=== PATIENT | male | born 1995 | race Caucasian/White ===

== ENCOUNTER 2016-09-12 22:16 | Emergency (ER) | payer OTHER ==
[~2016-09-12] VITALS: Ht 165.1 cm; Wt 86.2 kg
[~2016-09-12 22:16] MED LIST: HYDR-548 PO
--- NOTE | 2016-09-12 22:45 | NUR ---
PT CAME IN WITH C/O LOW BACK PAIN.PT STATES FELL THIS AM FLAT ON BACK.PT STATES FLOOR SLIPPERY AND HE WAS RUNNING AND FELL.ALSO PAIN IN COCCYX AREA. PT IS ALERT, ORIENTED X 4, NO RESP DISTRESS NOTED OR REPORTED UPON ASSESSMENT. MD AT BEDSIDE...
--- NOTE | 2016-09-12 23:13 | NUR ---
Radiology dept contacted to advised of ordered lumbar spine CT.... tech acknowledged...
[2016-09-12] MEDS ORDERED: IBUPROFEN 800 MG TABLET PO ONE (23:15)
--- NOTE | 2016-09-12 23:17 | NUR ---
BUTTON CUTTER TO TAKE PT FOR SCANS, PER PTS REQUEST, PT WILL BE WALKING TO RADIOLOGY FOR SCANS... NO DISTRESS NOTED OR REPORTED UPON TRANSFER ASSESSMENT...
[2016-09-12] MEDS ORDERED: IBUPROFEN 800 MG TABLET ONE (23:20)
--- NOTE | 2016-09-12 23:58 | NUR ---
rad results in and pt reevaluated by dr montero, talked to pt about the results.
--- NOTE | 2016-09-13 | NUR ---
aci and presc given to pt, presc explained..and understood, discharged ambulatory in stable condition.
[2016-09-13 00:02] VITALS: BP 110/66
== END 2016-09-13 00:07 | disposition home or self-care (01) ==
LOC: ER 22:16
DX: M54.5 Low back pain (principal); W01.0XXA Fall on same level from slipping, tripping and stumbling without subsequent striking against object, initial encounter; Y93.89 Activity, other specified; Y92.9 Unspecified place or not applicable; Y99.9 Unspecified external cause status
CPT/HCPCS: 72131; 99284; A4663

== ENCOUNTER 2016-11-25 15:18 | Emergency (ER) | payer OTHER ==
[~2016-11-25] VITALS: Ht 165.1 cm; Wt 88.9 kg
[2016-11-25] MEDS: IV NORMAL SALINE 1000 ML BAG IV ONE (15:45)
--- NOTE | 2016-11-25 15:46 | NUR ---
PT IS IN ROOM #2A. DR BAEZA EVALUATED THE PT.
[2016-11-25] MEDS: KETOROLAC TROMETHAMINE 15 MG INJ IV ONE (15:51)
[2016-11-25] MEDS: FAMOTIDINE. 20 MG/2 ML VIAL IV ONE (15:52)
[2016-11-25] MEDS: ONDANSETRON 4 MG/2 ML VIAL IV ONE (15:52)
[2016-11-25 15:53] LABS: BASOPHILS # (AUTO) 0.5 K/uL (0.0-8.0); BASOPHILS % (AUTO) 2.4 % (0.0-2.0); HEMATOCRIT 43.8 % (40-50); HEMOGLOBIN 15.4 G/DL (14.0-18.0); LYMPHOCYTES # (AUTO) 0.7 K/UL (0.8-4.8); LYMPHOCYTES % (AUTO) 3.7 % (20.5-51.5); MEAN CORPUSCULAR HEMOGLOBIN 30.6 UUG (27.0-31.0); MEAN CORPUSCULAR HGB CONC 35 g/dL (32.0-37.0); MEAN CORPUSCULAR VOLUME 86.7 FL (82.0-92.0); MONOCYTES # (AUTO) 0.8 K/UL (0.1-1.30); NEUTROPHILS # (AUTO) 17.3 K/UL (1.8-8.9); NEUTROPHILS % (AUTO) 89.9 % (38.5-71.5); PLATELET COUNT (AUTO) 240 K/UL (150-450); RED BLOOD CELL COUNT(AUTO) 5.05 MIL/UL (4.7-6.1); WHITE BLOOD COUNT (AUTO) 19.3 K/UL (4.0-11.2)
[2016-11-25 15:56] LABS: CREATININE 1.1 mg/dL (0.6-1.3); POTASSIUM 3.8 mmol/L (3.5-5.1)
[2016-11-25] MEDS ORDERED: KETOROLAC TROMETHAMINE 30 MG INJ ONE (15:59)
[2016-11-25] MEDS ORDERED: ONDANSETRON 4 MG/2 ML VIAL ONE (15:59)
[2016-11-25] MEDS ORDERED: FAMOTIDINE. 20 MG/2 ML VIAL IV ONE (16:00)
[2016-11-25 16:01] LABS: BILIRUBIN,DIRECT 0.1 mg/dL (0.0-0.2); BILIRUBIN,TOTAL 0.7 mg/dL (0.2-1.0); TOTAL PROTEIN, SERUM 8.5 g/dL (6.4-8.2)
[2016-11-25 16:17] LABS: BAND % (MANUAL) 14 % (0-10); NEUTROPHILS % (MANUAL) 77 % (42-75)
[2016-11-25 16:18] LABS: LYMPHOCYTES % (MANUAL) 4 % (20-40); MONOCYTES % (MANUAL) 5 % (2-10)
--- NOTE | 2016-11-25 16:47 | NUR ---
PT WAS D/C TO HOME. D/C INSTRUCTIONS GIVEN TO THE PT.
[2016-11-25 16:49] VITALS: BP 136/77
== END 2016-11-25 16:50 | disposition home or self-care (01) ==
LOC: ER 15:23
DX: B34.9 Viral infection, unspecified (principal); M54.5 Low back pain
CPT/HCPCS: 36415; 83690; 85025; A4663; J1885; J2405; J3490; J7030

== ENCOUNTER 2017-03-02 03:59 | Emergency (ER) ==
[~2017-03-02] VITALS: Ht 165.1 cm; Wt 87.1 kg
--- NOTE | 2017-03-02 04:10 | NUR ---
Patient walked into ER c/o right big toe nail injury. Patient states was lifting wt. at school gym 5hrs ago when patient accidently dropped 60lbs on his right toe while doing curls. Patient ripped off toe nail prior to arrival due to swelling of nail bed area and pain
--- NOTE | 2017-03-02 04:25 | NUR ---
Placed dressing on big toe injury as ordered
[2017-03-02 04:34] VITALS: BP 140/90
== END 2017-03-02 04:34 | disposition home or self-care (01) ==
LOC: ER 04:02
DX: S97.111A Crushing injury of right great toe, initial encounter (principal); S91.201A Unspecified open wound of right great toe with damage to nail, initial encounter; W20.8XXA Other cause of strike by thrown, projected or falling object, initial encounter; Y93.89 Activity, other specified; Y92.9 Unspecified place or not applicable; Y99.9 Unspecified external cause status
CPT/HCPCS: 73660; 99284; A4663

== ENCOUNTER 2017-11-18 15:47 | Emergency (ER) | payer OTHER ==
[~2017-11-18] VITALS: Ht 165.1 cm; Wt 77.1 kg
[2017-11-18] MEDS ORDERED: IBUPROFEN 800 MG TABLET PO ONE (16:45)
[2017-11-18] MEDS ORDERED: IBUPROFEN 800 MG TABLET ONE (16:49)
--- NOTE | 2017-11-18 16:50 | NUR ---
Patient discharged to home in stable conditon. Written and verbal after care instructions given. Patient verbalizes understanding of instructions.
== END 2017-11-18 16:53 | disposition home or self-care (01) ==
LOC: ER 15:50
DX: J20.9 Acute bronchitis, unspecified (principal); G89.29 Other chronic pain; M54.5 Low back pain
CPT/HCPCS: 99282; A4663

== ENCOUNTER 2018-01-16 09:12 | Emergency (ER) | payer OTHER ==
[~2018-01-16] VITALS: Ht 162.6 cm; Wt 74.8 kg
--- NOTE | 2018-01-16 09:33 | NUR ---
Patient discharged to home in stable conditon. Written and verbal after care instructions given. Patient verbalizes understanding of instructions.
== END 2018-01-16 09:35 | disposition home or self-care (01) ==
LOC: ER 09:15
DX: H66.91 Otitis media, unspecified, right ear (principal)
CPT/HCPCS: A4663

== ENCOUNTER 2018-02-14 00:39 | Emergency (ER) | payer OTHER ==
[~2018-02-14] VITALS: Ht 165.1 cm; Wt 74.8 kg
[2018-02-14] MEDS ORDERED: DIAZEPAM 2 MG TABLET PO ONE (01:15)
[2018-02-14] MEDS ORDERED: KETOROLAC TROMETHAMINE 30 MG INJ IM ONE (01:15)
[2018-02-14] MEDS ORDERED: HYDROCODONE/APAP 5-325MG TABLET PO ONE (01:15)
[2018-02-14] MEDS ORDERED: KETOROLAC TROMETHAMINE 30 MG INJ ONE (01:16)
[2018-02-14] MEDS ORDERED: DIAZEPAM 5 MG TABLET ONE (01:16)
[2018-02-14] MEDS ORDERED: HYDROCODONE/APAP 5-325MG TABLET ONE (01:17)
--- NOTE | 2018-02-14 01:44 | NUR ---
Patient discharged to home in stable conditon. Written and verbal after care instructions given. Patient verbalizes understanding of instructions. Pt ambulated out of ER in steady gait and has friend who picked him up to drive home. All belongings with pt. VSS. NAD noted.
[2018-02-14 01:46] VITALS: BP 104/79
== END 2018-02-14 01:46 | disposition home or self-care (01) ==
LOC: ER 00:54
DX: M54.5 Low back pain (principal)
CPT/HCPCS: 96372; 99283; A4663; J1885

== ENCOUNTER 2018-03-23 23:48 | Emergency (ER) | payer OTHER ==
[~2018-03-23] VITALS: Ht 165.1 cm; Wt 76.2 kg
[2018-03-24] MEDS ORDERED: KETOROLAC TROMETHAMINE 30 MG INJ ONE
[2018-03-24] MEDS ORDERED: KETOROLAC TROMETHAMINE 30 MG INJ IM ONE
--- NOTE | 2018-03-24 00:08 | NUR ---
Patient discharged to home in stable conditon. Written and verbal after care instructions given. Patient verbalizes understanding of instructions.
[2018-03-24 00:09] VITALS: BP 136/79
== END 2018-03-24 00:10 | disposition home or self-care (01) ==
LOC: ER 23:51
DX: S93.601A Unspecified sprain of right foot, initial encounter (principal); V89.2XXA Person injured in unspecified motor-vehicle accident, traffic, initial encounter; Y93.89 Activity, other specified; Y92.89 Other specified places as the place of occurrence of the external cause; Y99.8 Other external cause status
CPT/HCPCS: A4663; J1885

== ENCOUNTER 2018-04-20 19:37 | Emergency (ER) | payer OTHER ==
[~2018-04-20] VITALS: Ht 162.6 cm; Wt 77.1 kg
--- NOTE | 2018-04-20 20:01 | NUR ---
PT A/OX4, RESPONSIVE TO VERBAL AND TACTILE STIMULI. PT C/O R EARACHE X2 DAYS, PROVOKED UPON NOSE-BLOWING, PRESSURE-LIKE IN QUALITY, DOES NOT RADIATE, 6/10, CONSTANT. NO DRAINAGE PRESENT, NO VISUAL OBSTRUCTION. DENIES HEARING LOSS IN AFFECTED EAR. PT DENIES C/P, SOB, N/V/D, DIZZINESS, HEADACHE.
--- NOTE | 2018-04-20 20:21 | NUR ---
KEMAR GIRALDO AT BEDSIDE FOR MSE.
--- NOTE | 2018-04-20 20:28 | NUR ---
Patient discharged to home in stable conditon. Written and verbal after care instructions given. Patient verbalizes understanding of instructions. PT D/C W/ PRESCRIPTION. ALL BELONGINGS W/ PT. PT SELF-AMBULATED WITHOUT DIFFICULTY.
[2018-04-20 20:29] VITALS: BP 128/76
== END 2018-04-20 20:30 | disposition home or self-care (01) ==
LOC: ER 19:39
DX: H60.91 Unspecified otitis externa, right ear (principal); H66.91 Otitis media, unspecified, right ear
CPT/HCPCS: A4663

== ENCOUNTER 2018-09-26 01:33 | Emergency (ER) | payer MEDICAID, OTHER ==
[~2018-09-26] VITALS: Ht 162.6 cm; Wt 79.4 kg
[2018-09-26] MEDS: PHENAZOPYRIDINE HCL 100 MG TABLET PO ONE (02:24)
--- NOTE | 2018-09-26 02:24 | NUR ---
ER at bedside
[2018-09-26] MEDS ORDERED: AZITHROMYCIN 250 MG TABLET ONE (02:33)
[2018-09-26] MEDS ORDERED: CEFTRIAXONE 500 MG VIAL ONE (02:33)
[2018-09-26] MEDS: CEFTRIAXONE 500 MG VIAL IM ONE (02:34)
[2018-09-26] MEDS: AZITHROMYCIN 250 MG TABLET PO ONE (02:34)
--- NOTE | 2018-09-26 02:37 | NUR ---
Patient discharged to home in stable conditon. Written and verbal after care instructions given. Patient verbalizes understanding of instructions. Ambulated from ER with stable gait. All belongings with patient. VSS
[2018-09-26 02:38] VITALS: BP 121/87
[2018-09-28 07:11] LABS: *GC NAA Negative (Negative); *TRIC.VAG. NAA Negative (Negative)
== END 2018-09-26 02:38 | disposition home or self-care (01) ==
LOC: ER 01:35
DX: N48.89 Other specified disorders of penis (principal); R05 Cough
CPT/HCPCS: 87491; 96372; 99283; J0696; A4663; Q0144

== ENCOUNTER 2019-02-23 14:37 | Emergency (ER) | payer MEDICAID, OTHER ==
[~2019-02-23] VITALS: Ht 162.6 cm; Wt 77.1 kg
--- NOTE | 2019-02-23 15:40 | NUR ---
Patient discharged to home in stable conditon. Written and verbal after care instructions given. Patient verbalizes understanding of instructions.
== END 2019-02-23 15:42 | disposition home or self-care (01) ==
LOC: ER 14:37
DX: L73.9 Follicular disorder, unspecified (principal)
CPT/HCPCS: A4663

== ENCOUNTER 2019-03-19 20:37 | Emergency (ER) | payer OTHER ==
[~2019-03-19] VITALS: Ht 162.6 cm; Wt 76.2 kg
--- NOTE | 2019-03-19 20:47 | NUR ---
md:ROSMERY at bedside ,examning patient .checked on patient back area and discussed to patient plan of treatment .keflex po and to see a dematologict .
[2019-03-19] MEDS ORDERED: CEphaleXIN 500 MG CAPSULE PO ONE (21:00)
[2019-03-19] MEDS ORDERED: CEphaleXIN 500 MG CAPSULE ONE (21:02)
[2019-03-19 21:04] VITALS: BP 133/77
--- NOTE | 2019-03-19 21:05 | NUR ---
Patient discharged to home in stable conditon. deneis pain no respiratory distress v/s wnl . Written and verbal after care instructions given. Patient verbalizes understanding of instructions.went home with all belongings and went home steady gait.
== END 2019-03-19 21:06 | disposition home or self-care (01) ==
LOC: ER 20:37
DX: R21 Rash and other nonspecific skin eruption (principal)
CPT/HCPCS: A4663

== ENCOUNTER 2019-09-22 21:43 | Emergency (ER) | payer OTHER ==
[~2019-09-22] VITALS: Ht 162.6 cm; Wt 81.6 kg
[2019-09-22 22:35] LABS: *BILIRUBIN,URIN NEGATIVE (NEGATIVE); *BLOOD, URINE NEGATIVE (NEGATIVE); *CLARITY,URINE CLOUDY (CLEAR); *COLOR,URINE YELLOW (YELLOW); *KETONES,URINE NEGATIVE (NEGATIVE); *UROBILINOGEN,URINE 0.2 E.U./dl (NORMAL); LEUKOCYTE ESTERASE ,URINE NEGATIVE (NEGATIVE); NITRITE, URINE NEGATIVE (NEGATIVE); PH,URINE 8.5 (5.0-8.0); UGLUCOSE NEGATIVE (NEGATIVE)
[2019-09-22] MEDS ORDERED: ONDANSETRON 4 MG/2 ML VIAL ONE ×2 (22:37→23:35)
[2019-09-22] MEDS ORDERED: KETOROLAC TROMETHAMINE 30 MG INJ ONE (22:38)
[2019-09-22 22:43] LABS: BACTERIA,URINE MODERATE /HPF (NONE SEEN); RBC,URINE 0-3 /HPF (0-3); SQUAMOUS EPITHELIAL CELL,UR MODERATE /HPF (NONE SEEN); WBC,URINE 0-3 /HPF (0-3)
[2019-09-22 22:44] LABS: URINE AMORPHOUS PHOSPHATES MANY /HPF
[2019-09-22] MEDS ORDERED: KETOROLAC TROMETHAMINE 15 MG INJ IVP ONE (22:45)
[2019-09-22] MEDS ORDERED: IV NORMAL SALINE 1000 ML BAG IV ONE ×2 (22:45→23:30)
[2019-09-22] MEDS ORDERED: ONDANSETRON 4 MG/2 ML VIAL IV ONE ×2 (22:45→23:30)
[2019-09-22 22:51] LABS: BASOPHILS % (AUTO) 0.5 % (0.0-2.0); EOSINOPHILS # (AUTO) 0.2 K/uL (0.0-0.7); EOSINOPHILS % (AUTO) 2.5 % (0.0-7.0); HEMATOCRIT 43.5 % (36.7-47.1); HEMOGLOBIN 15.1 g/dL (12.5-16.3); LYMPHOCYTES # (AUTO) 1.9 K/uL (20.0-40.0); LYMPHOCYTES % (AUTO) 27.9 % (20.5-51.5); MEAN CORPUSCULAR HEMOGLOBIN 30.9 uug (23.8-33.4); MEAN CORPUSCULAR HGB CONC 35 g/dL (32.5-36.3); MEAN CORPUSCULAR VOLUME 89.2 fL (73.0-96.2); MONOCYTES # (AUTO) 0.6 K/uL (2.0-10.0); MONOCYTES % (AUTO) 8.6 % (0.0-11.0); NEUTROPHILS # (AUTO) 4.1 K/uL (1.8-8.9); NEUTROPHILS % (AUTO) 60.5 % (38.5-71.5); PLATELET COUNT (AUTO) 243 K/uL (152-348); RED BLOOD CELL COUNT(AUTO) 4.88 MIL/uL (4.06-5.63); WHITE BLOOD COUNT (AUTO) 6.7 K/uL (3.6-10.2)
--- NOTE | 2019-09-22 22:57 | NUR ---
Patient states pain is "better now."
[2019-09-22] MEDS ORDERED: MORPHINE SULFATE 4 MG/1 ML DISP.SYRIN IV ONE (23:30)
--- NOTE | 2019-09-22 23:33 | NUR ---
Patient c/o returning of right flank pain radiating to right side of abdominal area with nausea. Dr Schroeder aware. Orders recieved.
[2019-09-22] MEDS ORDERED: MORPHINE SULFATE 4 MG/1 ML DISP.SYRIN ONE (23:35)
--- NOTE | 2019-09-22 23:38 | NUR ---
US tech into do US.
--- NOTE | 2019-09-23 | NUR ---
Patient states pain is 10/10. Morphine not effective.
[2019-09-23] MEDS ORDERED: TAMSULOSIN HCL 0.4 MG CAP.SR.24H ONE (00:06)
[2019-09-23] MEDS ORDERED: HYDROMORPHONE 1 MG/1 ML DISP.SYRIN ONE (00:06)
[2019-09-23] MEDS ORDERED: HYDROMORPHONE 1 MG/1 ML DISP.SYRIN IV ONE (00:15)
[2019-09-23] MEDS ORDERED: TAMSULOSIN HCL 0.4 MG CAP.SR.24H PO ONE (00:15)
--- NOTE | 2019-09-23 00:19 | NUR ---
IV removed. Catheter intact and site benign. Pressure and 4x4 gauze applied to site. No bleeding noted.
--- NOTE | 2019-09-23 00:30 | NUR ---
Patient requesting to be D/C'ed. Ambulatory with steady gait to restroom. Right flank pain is 4/10.
--- NOTE | 2019-09-23 00:36 | NUR ---
Patient discharged to home in stable conditon with friend taking patient home. Written and verbal after care instructions given. Patient verbalizes understanding of instructions. Walked out of ER with no distress noted.
[2019-09-23 00:37] VITALS: BP 125/68
== END 2019-09-23 00:38 | disposition home or self-care (01) ==
LOC: ER 21:44
DX: N23 Unspecified renal colic (principal); Z87.442 Personal history of urinary calculi; R11.0 Nausea
CPT/HCPCS: 99284; 36415; 76770; 76870; 80048; 81001; 85025; 87086; 96361; 96374; 96375; 96376; J1170; J1885; J2270; J2405 ×2; J7030

== ENCOUNTER 2020-02-14 14:18 | Emergency (ER) | payer OTHER ==
[~2020-02-14] VITALS: Ht 162.6 cm; Wt 88.5 kg
[2020-02-14] MEDS ORDERED: NEOMY/BACITRA/POLYMYXIN B OINT UD PACKET TP ONE ×2 (14:42→14:45)
[2020-02-14] MEDS ORDERED: diphenhydrAMINE 50 MG/1 ML VIAL ONE (14:42)
[2020-02-14] MEDS ORDERED: SULFAMETH/TRIMETH 800/160 MG TABLET ONE (14:43)
[2020-02-14] MEDS ORDERED: diphenhydrAMINE 50 MG/1 ML VIAL IM ONE (14:45)
[2020-02-14] MEDS ORDERED: SULFAMETH/TRIMETH 800/160 MG TABLET PO ONE (14:45)
--- NOTE | 2020-02-14 14:46 | NUR ---
benadryl given IM in left deltoid
--- NOTE | 2020-02-14 14:47 | NUR ---
Patient was seen by MD . Meds given as ordered. Ointment applied. DC ,RX AND FOLLOW UP INSTRUCTIONS GIVEN AND EXPLAINED TO PATIENT WHO STATES HE UNDERSRANDS ALL INSTRUCTONS.
== END 2020-02-14 15:20 | disposition home or self-care (01) ==
LOC: ER 14:20
DX: L03.115 Cellulitis of right lower limb (principal); S90.561A Insect bite (nonvenomous), right ankle, initial encounter; S30.861A Insect bite (nonvenomous) of abdominal wall, initial encounter; W57.XXXA Bitten or stung by nonvenomous insect and other nonvenomous arthropods, initial encounter; Y92.89 Other specified places as the place of occurrence of the external cause
CPT/HCPCS: 96372; 99283; J1200; A4663

== ENCOUNTER 2020-02-16 01:16 | Emergency (ER) | payer OTHER ==
[~2020-02-16] VITALS: Ht 162.6 cm; Wt 86.2 kg
[2020-02-16] MEDS ORDERED: SULF1TAB48 PO (01:29)
[2020-02-16] MEDS ORDERED: DIPH25CA83 PO (01:29)
--- NOTE | 2020-02-16 01:35 | NUR ---
Dr. Avitia at bedside for MSE.
--- NOTE | 2020-02-16 01:47 | NUR ---
Patient cleared for discharged. Written and verbal after care instructions given. Patient verbalizes understanding of instructions. Stressed follow up or return to ER for worsening s/s. Ambulated out of ER in steady gait, to home in stable condition.
[2020-02-16 01:48] VITALS: BP 127/74
== END 2020-02-16 01:50 | disposition home or self-care (01) ==
LOC: ER 01:18
DX: Z51.89 Encounter for other specified aftercare (principal); R21 Rash and other nonspecific skin eruption
CPT/HCPCS: A4663

== ENCOUNTER 2022-04-30 14:11 | Emergency (ER) | payer OTHER ==
[~2022-04-30] VITALS: Ht 165.1 cm; Wt 91.6 kg
[~2022-04-30 14:11] MED LIST changes: +DIPH25CA83 PO; -HYDR-548 PO; +SULF1TAB48 PO
[2022-04-30] MEDS ORDERED: KETOROLAC TROMETHAMINE 30 MG INJ ONE (14:35)
[2022-04-30] MEDS ORDERED: CARI350T PO (14:39)
[2022-04-30] MEDS ORDERED: KETOROLAC TROMETHAMINE 30 MG INJ IM ONE (14:45)
[2022-04-30 14:52] VITALS: BP 135/71
== END 2022-04-30 14:54 | disposition home or self-care (01) ==
LOC: ER 14:11
DX: S39.012A Strain of muscle, fascia and tendon of lower back, initial encounter (principal); X50.0XXA Overexertion from strenuous movement or load, initial encounter; X50.9XXA Other and unspecified overexertion or strenuous movements or postures, initial encounter; Y93.B9 Activity, other involving muscle strengthening exercises; Y92.89 Other specified places as the place of occurrence of the external cause; Z87.442 Personal history of urinary calculi; Z91.018 Allergy to other foods; Z91.048 Other nonmedicinal substance allergy status
CPT/HCPCS: 99283; 96372; J1885; A4663

== ENCOUNTER 2022-10-09 00:35 | Emergency (ER) | payer OTHER ==
[~2022-10-09] VITALS: Ht 162.6 cm; Wt 97.5 kg
[~2022-10-09 00:35] MED LIST changes: +CARI350T PO
[2022-10-09] MEDS ORDERED: IPRATROPIUM BROMIDE 0.5 MG/2.5 ML NEBU NEB ONE (02:00)
[2022-10-09] MEDS ORDERED: ALBUTEROL SULFATE 2.5 MG/3 ML NEBU NEB ONE (02:00)
--- NOTE | 2022-10-09 02:05 | NUR ---
RT at bedsier for respiratory treatment
[2022-10-09] MEDS ORDERED: IPRATROPIUM BROMIDE 0.5 MG/2.5 ML NEBU ONE (02:06)
[2022-10-09] MEDS ORDERED: ALBUTEROL SULFATE 2.5 MG/3 ML NEBU ONE (02:06)
[2022-10-09] MEDS ORDERED: AMOX500T2 PO (02:53)
[2022-10-09] MEDS ORDERED: GUAI5SYR4 PO (02:53)
[2022-10-09] MEDS ORDERED: ALBU6.7H9 INH (03:08)
--- NOTE | 2022-10-09 03:11 | NUR ---
Patient discharged to home in stable condition. Written and verbal after care instructions given. Patient verbalizes understanding of instructions. Stressed follow up or return to ER for worsening s/s.
[2022-10-09 03:12] VITALS: BP 117/63
[2022-10-09] MEDS ORDERED: GUAI-791 PO (11:17)
== END 2022-10-09 03:14 | disposition home or self-care (01) ==
LOC: ER 00:35
DX: J02.9 Acute pharyngitis, unspecified (principal); J45.909 Unspecified asthma, uncomplicated; Z88.8 Allergy status to other drugs, medicaments and biological substances; Z91.018 Allergy to other foods; Z79.2 Long term (current) use of antibiotics; Z79.899 Other long term (current) drug therapy
CPT/HCPCS: A4663; J3590

== ENCOUNTER 2022-10-20 11:27 | Emergency (ER) | payer OTHER ==
[~2022-10-20] VITALS: Ht 162.6 cm; Wt 95.3 kg
[~2022-10-20 11:27] MED LIST changes: +ALBU6.7H9 INH; +AMOX500T2 PO; +GUAI-791 PO
--- NOTE | 2022-10-20 11:46 | NUR ---
PT IS IN ROOM #2A. DR BOTELLO EVALUATED THE PT.
[2022-10-20] MEDS ORDERED: KETOROLAC TROMETHAMINE 15 MG INJ IM ONE (12:00)
[2022-10-20] MEDS ORDERED: AMOX-430 PO (12:08)
[2022-10-20] MEDS ORDERED: IBUP-1955 PO (12:08)
[2022-10-20] MEDS ORDERED: KETOROLAC TROMETHAMINE 15 MG INJ ONE (12:49)
--- NOTE | 2022-10-20 12:52 | NUR ---
PT WAS D/C'd TO HOME. D/C INSTRUCTIONS GIVEN TO THE PT BY DR BOTELLO.
[2022-10-20 12:53] VITALS: BP 132/75
== END 2022-10-20 12:54 | disposition home or self-care (01) ==
LOC: ER 11:27
DX: J02.9 Acute pharyngitis, unspecified (principal); J06.9 Acute upper respiratory infection, unspecified; R05.9 Cough, unspecified; R09.81 Nasal congestion; J45.909 Unspecified asthma, uncomplicated; Z79.1 Long term (current) use of non-steroidal anti-inflammatories (NSAID); Z79.2 Long term (current) use of antibiotics; Z79.899 Other long term (current) drug therapy
CPT/HCPCS: 99284; 71045; 86403; 96372; J1885; A4663

== ENCOUNTER 2023-04-28 19:38 | Emergency (ER) | payer OTHER ==
[~2023-04-28] VITALS: Ht 165.1 cm; Wt 95.3 kg
[~2023-04-28 19:38] MED LIST changes: +AMOX-430 PO; +IBUP-1955 PO
[2023-04-28] MEDS ORDERED: predniSONE 20 MG TABLET ONE (20:27)
[2023-04-28] MEDS ORDERED: predniSONE 20 MG TABLET PO ONE (20:30)
[2023-04-28] MEDS ORDERED: ALBUTEROL SULFATE 2.5 MG/3 ML NEBU NEB ONE (20:30)
[2023-04-28] MEDS ORDERED: IPRATROPIUM BROMIDE 0.5 MG/2.5 ML NEBU NEB ONE (20:30)
[2023-04-28] MEDS ORDERED: ALBUTEROL SULFATE 2.5 MG/3 ML NEBU ONE (21:01)
[2023-04-28] MEDS ORDERED: IPRATROPIUM BROMIDE 0.5 MG/2.5 ML NEBU ONE (21:01)
[2023-04-28 21:20] VITALS: O2SAT 98
[2023-04-28 21:25] VITALS: O2SAT 99
[2023-04-28 21:33] VITALS: O2SAT 99
[2023-04-28] MEDS ORDERED: METH4TAB21 GT (22:55)
[2023-04-28] MEDS ORDERED: ALBU18HF2 INH (22:55)
[2023-04-28] MEDS ORDERED: IPRA42SP NS (22:55)
[2023-04-28 23:35] VITALS: BP 122/62; TEMP 98.5; O2SAT 100
== END 2023-04-28 23:38 | disposition home or self-care (01) ==
LOC: ER 19:44
DX: R06.00 Dyspnea, unspecified (principal); J20.9 Acute bronchitis, unspecified; J32.9 Chronic sinusitis, unspecified; J06.9 Acute upper respiratory infection, unspecified; B97.89 Other viral agents as the cause of diseases classified elsewhere; J45.909 Unspecified asthma, uncomplicated; Z91.018 Allergy to other foods; Z88.8 Allergy status to other drugs, medicaments and biological substances; Z79.1 Long term (current) use of non-steroidal anti-inflammatories (NSAID); Z79.2 Long term (current) use of antibiotics; Z79.899 Other long term (current) drug therapy; Z20.822 Contact with and (suspected) exposure to COVID-19
CPT/HCPCS: 99284; 71045; 87426; 87804 ×2; 94640; J7512; A4606; A4663; J3590

== ENCOUNTER 2023-05-04 06:12 | Emergency (ER) | payer OTHER ==
[~2023-05-04] VITALS: Ht 165.1 cm; Wt 96.6 kg
[~2023-05-04 06:12] MED LIST changes: +ALBU18HF2 INH; +IPRA42SP NS; +METH4TAB21 GT
[2023-05-04] MEDS ORDERED: levoFLOXacin 500 MG TABLET ONE (07:05)
[2023-05-04] MEDS: levoFLOXacin 500 MG TABLET PO ONE (07:06)
[2023-05-04] MEDS ORDERED: LEVO500T90 PO ×2 (07:14→07:33)
[2023-05-04 07:20] VITALS: BP 119/71; O2SAT 99
== END 2023-05-04 07:34 | disposition home or self-care (01) ==
LOC: ER 06:16
DX: J06.9 Acute upper respiratory infection, unspecified (principal); R05.9 Cough, unspecified; R09.81 Nasal congestion; R09.A2 Foreign body sensation, throat; J40 Bronchitis, not specified as acute or chronic; Z79.899 Other long term (current) drug therapy; Z60.2 Problems related to living alone; Z91.018 Allergy to other foods
CPT/HCPCS: A4606; A4663

== ENCOUNTER 2023-08-20 20:14 | Emergency (ER) | payer OTHER ==
[~2023-08-20] VITALS: Ht 165.1 cm; Wt 95.3 kg
[~2023-08-20 20:14] MED LIST changes: +LEVO500T90 PO
[2023-08-20] MEDS ORDERED: KETOROLAC TROMETHAMINE 30 MG INJ ONE (20:30)
[2023-08-20] MEDS: KETOROLAC TROMETHAMINE 30 MG INJ IM ONE (20:40)
[2023-08-20] MEDS ORDERED: NAPR-1192 PO (21:07)
[2023-08-20 21:25] VITALS: BP 124/62; O2SAT 98
== END 2023-08-20 21:26 | disposition home or self-care (01) ==
LOC: ER 20:17
DX: M25.511 Pain in right shoulder (principal); M54.2 Cervicalgia; J45.909 Unspecified asthma, uncomplicated; F17.200 Nicotine dependence, unspecified, uncomplicated; Z79.899 Other long term (current) drug therapy; Z60.2 Problems related to living alone; Z91.018 Allergy to other foods
CPT/HCPCS: 99283; 73030; 96372; J1885; A4606; A4663

== ENCOUNTER 2023-11-28 23:04 | Emergency (ER) | payer BC, MEDICAID, OTHER ==
[~2023-11-28] VITALS: Ht 165.1 cm; Wt 90.7 kg
[2023-11-29] MEDS ORDERED: IBUPROFEN 800 MG TABLET ONE (00:32)
[2023-11-29] MEDS: IBUPROFEN 800 MG TABLET PO ONE (00:32)
[2023-11-29] MEDS ORDERED: HYDROCODONE/APAP 5-325MG TABLET ONE (00:32)
[2023-11-29] MEDS: HYDROCODONE/APAP 5-325MG TABLET PO ONE (00:32)
[2023-11-29] MEDS ORDERED: HYDROCODONE/APAP 5-325MG TABLET PO ONE (01:45)
[2023-11-29] MEDS: NEOMY/BACITRA/POLYMYXIN B OINT UD PACKET TP ONE (02:22)
[2023-11-29] MEDS ORDERED: NEOMY/BACITRA/POLYMYXIN B OINT UD PACKET TP ONE (02:23)
[2023-11-29] MEDS ORDERED: HYDR-4209 PO (02:25)
[2023-11-29] MEDS ORDERED: NAPR-1009 PO (02:25)
[2023-11-29 02:40] VITALS: BP 130/88; TEMP 98; O2SAT 97
== END 2023-11-29 02:41 | disposition home or self-care (01) ==
LOC: ER 23:12
DX: S50.02XA Contusion of left elbow, initial encounter (principal); R03.0 Elevated blood-pressure reading, without diagnosis of hypertension; J40 Bronchitis, not specified as acute or chronic; F17.200 Nicotine dependence, unspecified, uncomplicated; Z79.899 Other long term (current) drug therapy; Z60.2 Problems related to living alone; Z91.018 Allergy to other foods; W22.8XXA Striking against or struck by other objects, initial encounter; Y93.89 Activity, other specified; Y92.89 Other specified places as the place of occurrence of the external cause; Y99.8 Other external cause status
CPT/HCPCS: 73070; A4606; A4663